=== PATIENT | male | born 1960 | race Caucasian/White ===

== ENCOUNTER 2017-05-02 23:34 | Emergency (ER) | payer OTHER ==
[~2017-05-02] VITALS: Ht 167.6 cm; Wt 81.6 kg
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
--- NOTE | 2017-05-03 00:09 | NUR ---
RADIOLOGY AT BEDSIDE
--- NOTE | 2017-05-03 00:50 | NUR ---
[facility] AT BEDSIDE FOR REPORT
--- NOTE | 2017-05-03 01:04 | NUR ---
Patient discharged to home in stable condition. Written and verbal after care instructions given. Patient verbalizes understanding of instruction. ambulatory with a steady gait. instructed pt not to drive. pt verbalize understanding. pt accompanied by friend.
[2017-05-03 01:05] VITALS: BP 118/68
== END 2017-05-03 01:06 | disposition home or self-care (01) ==
LOC: ER 23:37
DX: R07.89 Other chest pain (principal); V43.52XA Car driver injured in collision with other type car in traffic accident, initial encounter; Y93.89 Activity, other specified; Y92.413 State road as the place of occurrence of the external cause; Y99.8 Other external cause status
CPT/HCPCS: 71045-TC; A4606; Z7610